=== PATIENT | female | born 2000 | race Two or more races ===

== ENCOUNTER 2024-01-21 13:41 | Emergency (ER) | payer MEDICAID, SELFPAY ==
[2024-01-21 14:10] VITALS: BP 122/84; PULSE 70; RESP 16; TEMP 36.9; O2SAT 99; BMI 20.9
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
[2024-01-21] MEDS: CYCLObenzaPRINE 5 MG TABLET PO ×2 (14:44→14:45)
[2024-01-21] MEDS: IBUPROFEN TAB 600 MG TABLET PO (14:44)
== END 2024-01-21 15:52 | disposition home or self-care (01) ==
PROVIDERS: Emergency Provider Emergency Medicine
DX: S80.212A Abrasion, left knee, initial encounter (principal); S80.02XA Contusion of left knee, initial encounter; Y08.89XA Assault by other specified means, initial encounter
CPT/HCPCS: 73562; 99283; A9270

== ENCOUNTER 2024-12-21 11:46 | Emergency (ER) | payer MEDICAID, SELFPAY ==
[2024-12-21 12:09] VITALS: BP 123/85; PULSE 81; RESP 19; TEMP 37; O2SAT 99; BMI 21.2
[2024-12-21] MEDS: DIPHTH,PERTUSS(ACELL),TET VAC 0.5 ML SYR- ADULT IMi (12:21)
[2024-12-21] MEDS: LIDOCAINE HCL 1% 20 ML VIAL INFL (12:21)
--- NOTE | 2024-12-21 13:03 | EDNOTE_ITS ---
<Statement entered by Anabel Rojas MD - 12/21/24 16:26> As co-signing physician, I was present and available for consult prn. I concur with the plan and care as documented by the midlevel provider. Upper Extremity Injury RME/HPI General Chief Complaint: Hand/Wrist Problems Stated Complaint: FINGERNAIL PULLED BACK ON LEFT MIDDLE FINGER Time Seen by Provider: 12/21/24 12:04 Source: patient Arrival date/time: 12/21/24 11:46 24-year-old female with no known medical history presents to the emergency room with a chief complaint of her fingernail pulled back on her left middle finger x 2 days Mode of arrival: ambulatory Limitations: no limitations Related Data Previous Rx's ?Medication ?Instructions ?Recorded ondansetron HCl 4 mg tablet 4 mg PO Q8H PRN nausea and 08/18/20 (Zofran) vomiting #14 tabs ferrous sulfate 325 mg (65 mg 325 mg PO Q OTHER DAY #2 0 tabs 07/11/22 iron) tablet (Iron (ferrous sulfate)) ibuprofen 600 mg tablet 600 mg PO Q8H PRN pain #30 t abs 01/21/24 cephalexin 500 mg capsule 500 mg PO BID 7 days #14 cap s 12/21/24 Allergies Allergy/AdvReac Type Severity Reaction Status Date / Time No Known Allergies Allergy Verified 12/21/24 11:49 Review of Systems Review of Systems Systems Reviewed: All systems reviewed, normal except as documented Constitutional Constitutional: Reports system reviewed and no additional complaints, except as documented, Denies fatigue, Denies fever(s), Denies headache(s) and Denies weakness Eyes Eyes: Reports system reviewed and no additional complaints, except as documented, Denies blurry vision and Denies change in vision ENT Ears, Nose, Mouth, and Throat: Reports system reviewed and no additional complaints, except as documented, Denies otalgia, Denies headache(s), Denies nasal congestion, Denies throat swelling and Denies vertigo Cardiovascular Cardiovascular: Reports system reviewed and no additional complaints, except as documented, Denies chest pain, Denies dyspnea and Denies dyspnea on exertion Respiratory Respiratory: Reports system reviewed and no additional complaints, except as documented, Denies chest congestion, Denies cough, Denies dyspnea, Denies dyspnea on exertion and Denies wheezing Gastrointestinal Gastrointestinal: Reports system reviewed and no additional complaints, except as documented, Denies abdominal pain, Denies cramping, Denies nausea and Denies vomiting Genitourinary Genitourinary: Reports system reviewed and no additional complaints, except as documented Musculoskeletal Musculoskeletal: Reports system reviewed and no additional complaints, except as documented, Reports arthralgias and Denies back pain Integumentary/Breasts Skin/Breast: Reports system reviewed and no additional complaints, except as documented and Denies wounds Neurologic Neurologic: Reports system reviewed and no additional complaints, except as documented, Denies confusion, Denies headache(s), Denies lack of coordination, Denies vertigo and Denies weakness Psychiatric Psychiatric: Reports system reviewed and no additional complaints, except as documented, Denies anxiety, Denies confusion, Denies depression, Denies paranoia, Denies suicidal ideation and Denies tactile hallucinations Endocrine Endocrine: Reports system reviewed and no additional complaints, except as documented and Denies fatigue Hematologic/Lymphatic Hematologic/Lymphatic: Reports system reviewed and no additional complaints, except as documented and Denies lymphadenopathy Allergic/Immunologic Allergic/Immunologic: Reports system reviewed and no additional complaints, except as documented, Denies throat swelling, Denies urticaria and Denies wheezing Past Medical History Past Medical History NEUROLOGIC: Negative Neurological Disorders CARDIAC: Negative Cardiac Disorders GASTROINTESTINAL: Negative Gastrointestinal Disorders PSYCHO/SOCIAL: Negative Psychiatric Problems, Schizophrenia, Recreational Drug Use, Bipolar Disorder, Depression, Anxiety, Behavior Problems or Self-Mutilation Social History SMOKING STATUS: Current some day smoker SUBSTANCE USE: does not use ED Exam General Limitations: Present no limitations General appearance: Present alert and in no apparent distress Head Head exam: Present atraumatic Eye Eye exam: Present normal appearance, PERRL and EOMI ENT ENT exam: Present normal exam, normal oropharynx and mucous membranes moist Neck Neck exam: Present normal inspection, full ROM and trachea midline Chest Chest inspection: Present normal inspection and symmetric chest wall rise Respiratory Respiratory exam: Present normal lung sounds bilaterally Cardiovascular Cardiovascular exam: Present regular rate, normal rhythm and normal heart sounds Abdominal Exam Abdominal exam: Present soft and normal bowel sounds Extremities Exam Extremities exam: Present normal inspection and full ROM Back Exam Back exam: Present normal inspection and full ROM Neurological Exam Neurological exam: Present alert, oriented X3 and CN II-XII intact Psychiatric Psychiatric exam: Present normal affect and normal mood Skin Skin exam: Present warm, dry, intact and normal color Course Quality Measures none Orders Category Date Time Status Set Up Suture Tray STAT Care 12/21/24 12:12 Completed Wound Care NOW Care 12/21/24 12:12 Completed Lidocaine 1% 20 ml [Xylocaine 1% 20 ML] Med 12/21/24 12:12 Discontinued 20 ml INFL X1 ONE TET,DIP/PERT AC (Adult)-Tdap [Boostrix Adult (Tdap) Med 12/21/24 12:12 Discontinued Vacc] 0.5 ml IMI .ONCE ONE Vital Signs Vital signs: Vital Signs Temperature 98.6 F 12/21/24 12:09 Pulse Rate 81 12/21/24 12:09 Respiratory Rate 19 12/21/24 12:09 Blood Pressure 123/85 H 12/21/24 12:09 Pulse Oximetry (%) 99 12/21/24 12:09 Oxygen Delivery Method Room Air 12/21/24 12:09 Extremity Injury MDM Narrative MDM Narrative:: 24-year-old female with no known medical history presents to the emergency room with a chief complaint of her fingernail pulled back on her left middle finger x 2 days Patient is hemodynamically stable and in no apparent distress Physical examination shows nail avulsion to the left middle finger. The nail is hanging on by the right tip. Digital block was completed and the nail was pulled off with no complications a dressing was placed on the injury Patient was discharged and educated to follow-up with primary care provider in the next 24 to 48 hours and return to the emergency room for any evidence of worsening signs or symptoms Patient data External records reviewed:: [facility] previous records Clinical information provided by:: patient Social determinants that could affect healthcare access:: none Patient has the following chronic illnesses:: No chronic illness How is presenting disease/condition affected by chronic disease/condition?: no chronic disease Evaluation data The following diagnostics were reviewed and interpreted by me:: lab results and radiology exam(s) Lab and/or radiology exams considered but not ordered:: Labs and radiology exams considered and ordered Interpretation Summary: N/A Medications / Prescriptions Medications or Prescriptions considered but not ordered:: Medication given Medication administrations:: Medication Administration History Discontinued Medications Diphtheria/Tetanus/Acell Pertussis (Diphth,Pertuss(Acell),Tet Vac 0.5 Ml Syr- Adult) 0.5 ml IMi .ONCE ONE Stop: 12/21/24 12:13 Last Admin: 12/21/24 12:21 Dose: 0.5 ml Documented By: Lidocaine HCl (Lidocaine Hcl 1% 20 Ml Vial) 20 ml INFL X1 ONE Stop: 12/21/24 12:13 Last Admin: 12/21/24 12:21 Dose: 20 ml Documented By: Medication given Consultations Consultation(s) initiated? (list below): No Diagnosis Upper Extremity Injury Differential Diagnosis: other (Nail avulsion/laceration/abrasion) Most likely diagnosis given after review of the tests above:: Nail avulsion Admission Indicated Admission indicated?: not indicated Admission Request Was there a request for admission?: No Disposition Plan Disposition Plan: Discharge Discharge Attestation Discharge Attestation: The patient and all family members were given an opportunity to ask questions and understood the discharge instructions. Discharge instructions specifically effects, indications for sooner follow up or return to the emergency department, and the expected course of current diagnosis. Patient condition: Stable Discharge Plan Plan Patient Disposition: HOME (Self Care) Prescriptions/Referrals Prescriptions/Med Rec: New cephalexin 500 mg capsule 500 mg PO BID 7 Days Qty: 14 0RF No Action ondansetron HCl [Zofran] 4 mg tablet 4 mg PO Q8H PRN (Reason: nausea and vomiting) Qty: 14 0RF ferrous sulfate [Iron (ferrous sulfate)] 325 mg (65 mg iron) tablet 325 mg PO Q OTHER DAY Qty: 20 0RF ibuprofen 600 mg tablet 600 mg PO Q8H PRN (Reason: pain) Qty: 30 0RF Problem List Clinical Impression: Avulsion of nail Patient/Caregiver Discharge Instructions Additional Instructions: Please follow-up with your primary care provider in the next 24 to 48 hours Please keep the area clean and dry for the next 24 hours afterwards to clean it with soap and water Antibiotic sent to your pharmacy please pick it up and take it as indicated For any evidence of worsening signs or symptoms return to emergency room immediately Print Language: Cymraes Stand Alone Forms: Shruthi Award Info., Work/School Release, Patient Portal Info Letter PA/WILLOW WORKER Supervising Physician PA/MIC Supervising Physician: Dr. Carranza
== END 2024-12-21 13:30 | disposition home or self-care (01) ==
LOC: SERX 13:32
PROVIDERS: Emergency Provider Emergency Medicine
DX: S61.303A Unspecified open wound of left middle finger with damage to nail, initial encounter (principal); W45.8XXA Other foreign body or object entering through skin, initial encounter
CPT/HCPCS: 11730; 90471; 90715; 99282; J3490